=== PATIENT | female | born 1975 | race Caucasian/White ===

== ENCOUNTER 2017-01-09 12:26 | Emergency (ER) | payer OTHER ==
[~2017-01-09] VITALS: Ht 172.7 cm; Wt 78.0 kg
[~2017-01-09 12:26] MED LIST: BC PILL PO; BENAZEPRIL PO; CITA20TA5 PO; HYDR1POW19 PO; NIFE30TA2 PO; PREN1TAB60 PO; [UNRECOGNIZED DRUG - OTHER] PO
[2017-01-09 13:44] LABS: BLOOD UREA NITROGEN 12 mg/dL (7-18)
[2017-01-09 14:59] VITALS: BP 134/83
== END 2017-01-09 15:01 | disposition home or self-care (01) ==
LOC: ED 14:08
DX: R00.2 Palpitations (principal); R55 Syncope and collapse
CPT/HCPCS: 36415; 80048; 82040; 83735; 84439; 84443; 85025; 93005; 99285